=== PATIENT | male | born 2000 | race Caucasian/White ===

== ENCOUNTER 2023-08-08 04:39 | Emergency (ER) | payer OTHER | END 2023-08-08 07:44 | disposition home or self-care (01) | LOC: ED 04:39 | DX: S20.211A Contusion of right front wall of thorax, initial encounter (principal); S00.83XA Contusion of other part of head, initial encounter; R04.0 Epistaxis; V49.40XA Driver injured in collision with unspecified motor vehicles in traffic accident, initial encounter; Y93.89 Activity, other specified; Y92.410 Unspecified street and highway as the place of occurrence of the external cause; Y99.8 Other external cause status ==